=== PATIENT | male | born 1985 | race Hispanic/Latino ===

== ENCOUNTER 2017-05-03 12:18 | Emergency (ER) | payer SELFPAY ==
[~2017-05-03] VITALS: Ht 167.6 cm; Wt 89.3 kg
[2017-05-03 12:52] LABS: HEMATOCRIT 45.1 % (38.0-50.0); HEMOGLOBIN 15.4 G/DL (12.5-16.6); MCH 28.9 PG (29.0-34.0); MCHC 34.1 G/DL (30.0-36.0); MCV 84.8 FL (86-99); PLATELET COUNT 254 K/uL (156-360); RBC DIS.WIDTH-CV 12.2 % (11.8-14.6); RBC DIS.WIDTH-SD 37.4 % (39-53); RED BLOOD COUNT 5.32 M/uL (4.00-5.50); WHITE BLOOD COUNT 7.5 K/uL (4.1-10.2)
[2017-05-03 13:01] LABS: CHLORIDE 101 mEq/L (99-109); POTASSIUM 3.9 mEq/L (3.7-5.4); SODIUM 141 mEq/L (136-147)
[2017-05-03 13:03] LABS: GLUCOSE 102 mg/dL (70-99)
[2017-05-03 13:07] LABS: CREATININE 0.9 mg/dL (0.6-1.3)
[2017-05-03 13:08] LABS: GFR ESTIMATE (CALCULATED) > 59 mL/min/ (58.99-99999); UREA NITROGEN (BUN) 19 mg/dL (9-23)
[2017-05-03 13:12] LABS: TROP-I INTERPRETATION NEGATIVE; TROPONIN-I < 0.01 ng/mL (0.0-0.30)
[2017-05-03] MEDS ORDERED: OMEPRAZOLE40 M1 PO (14:14)
[2017-05-03 14:24] VITALS: BP 115/76
== END 2017-05-03 14:24 | disposition home or self-care (01) ==
LOC: EME 12:18
DX: K27.9 Peptic ulcer, site unspecified, unspecified as acute or chronic, without hemorrhage or perforation (principal)
CPT/HCPCS: 71046; 80048; 84484; 85027; 93005; 99281; 99283